=== PATIENT | female | born 1955 | race Caucasian/White ===

== ENCOUNTER → 2016-10-19 | Outpatient (REF) ==
[~2016-10-19] MED LIST: AC500T PO; ALBU8.5H6; ALBU8.5H6 IH; AMOX1TAB12 PO; AMOX500C5 PO; ASPI-345 PO; ASPI-479; AZIT250T PO; AZIT500T PO; BUDE10.2 IH; BUPR100T15 PO; BUPR100T8 PO; BUSP15TA75 PO; CALC-140 PO; CEFD300C9 PO; CHOL4PAC2 PO; CLON0.5T PO; CLON0.5T3 PO; CLON1TAB3 PO; CLOP75TA3 PO; CLOZ100T7 PO; DLT120CCR PO; DONE10TA5 PO; DUONEB 0.5 MG-33 ML IH; FLUO40CA12 PO; FRS325T PO; FURO-124 PO; FURO80TA3 PO; Furosemide PO; GFN600TCR PO; IPR14IN INH; IPRA12.92 IH; KCL20TCR PO; LEVO500T16 PO; LOPE2CAP29 PO; LORA10TA7 PO; LOSA25TA2 PO; LVF500T PO; MAGN800O PO; MTP25TSR PO; MULT-954 PO; MULT1TAB69 PO; NAPR500T3 PO; OMEG-7 PO; OMEG1CAP PO; OMEP20CA12 PO; OXYGEN; PALI9TAB3 PO; POTA20PA3 PO; TIOT18CA IH; TRM50T PO
[2016-10-19 10:21] LABS: BASOPHILS % (AUTO) 0 % (0-2); EOSINOPHILS % (AUTO) 0 % (0-4); MEAN CORPUSCULAR HEMOGLOBIN 28.6 PG (26.0-34.0); MEAN CORPUSCULAR HGB CONC 32.6 g/dL (31.0-37.0); MEAN CORPUSCULAR VOLUME 88 FL (80-100); MEAN PLATELET VOLUME 9.7 FL (6.0-9.5); MONOCYTES # (AUTO) 0.9 X10^3; MONOCYTES % (AUTO) 7 % (3-11); NEUTROPHILS # (AUTO) 6.8 X10^3; NEUTROPHILS % (AUTO) 58 % (51-67); PLATELET COUNT 254 10^3uL (150-450); WHITE BLOOD COUNT 11.71 10^3uL (4.0-11.0)
== END ==
LOC: LAB 10:00
PROVIDERS: ATTEND Family Medicine
DX: Z51.81 Encounter for therapeutic drug level monitoring (principal)
CPT/HCPCS: 85025

== ENCOUNTER → 2016-11-16 | Outpatient (REF) ==
[2016-11-16 14:49] LABS: BASOPHILS % (AUTO) 0 % (0-2); EOSINOPHILS % (AUTO) 0 % (0-4); LYMPHOCYTES # (AUTO) 4.2 X10^3; MEAN CORPUSCULAR HEMOGLOBIN 28.6 PG (26.0-34.0); MEAN CORPUSCULAR HGB CONC 33.2 g/dL (31.0-37.0); MEAN CORPUSCULAR VOLUME 86 FL (80-100); MEAN PLATELET VOLUME 10.3 FL (6.0-9.5); MONOCYTES # (AUTO) 1.1 X10^3; MONOCYTES % (AUTO) 8 % (3-11); NEUTROPHILS # (AUTO) 8.7 X10^3; NEUTROPHILS % (AUTO) 61 % (51-67); PLATELET COUNT 256 10^3uL (150-450); WHITE BLOOD COUNT 14.22 10^3uL (4.0-11.0)
== END ==
LOC: CLAB.BLUES 14:13
PROVIDERS: ATTEND Family Medicine
DX: Z51.81 Encounter for therapeutic drug level monitoring (principal)
CPT/HCPCS: 85025

== ENCOUNTER → 2016-11-26 | Outpatient (REF) | LOC: RAD 13:59 | PROVIDERS: ATTEND Family Medicine | DX: J20.9 Acute bronchitis, unspecified (principal) | CPT/HCPCS: 71020 ==

== ENCOUNTER → 2016-12-13 | Outpatient (REF) ==
[2016-12-13 14:49] LABS: BASOPHILS % (AUTO) 0 % (0-2); EOSINOPHILS # (AUTO) 0.1 10^3uL; EOSINOPHILS % (AUTO) 0 % (0-4); LYMPHOCYTES # (AUTO) 3.5 X10^3; MEAN CORPUSCULAR HEMOGLOBIN 28.2 PG (26.0-34.0); MEAN CORPUSCULAR HGB CONC 32.9 g/dL (31.0-37.0); MEAN CORPUSCULAR VOLUME 86 FL (80-100); MONOCYTES # (AUTO) 1.4 X10^3; MONOCYTES % (AUTO) 9 % (3-11); NEUTROPHILS # (AUTO) 10.1 X10^3; NEUTROPHILS % (AUTO) 67 % (51-67); PLATELET COUNT 259 10^3uL (150-450); WHITE BLOOD COUNT 15.13 10^3uL (4.0-11.0)
[2016-12-13 15:40] LABS: ALBUMIN 4.2 g/dL (3.4-5.0); ANION GAP 16.3 MEQ/L (3-15); CALCULATED IONIZED CALCIUM 4.4 mg/dL (3.8-4.6); TOTAL PROTEIN 6.7 g/dL (6.4-8.5)
== END ==
LOC: CLAB.BLUES 11:34
PROVIDERS: ATTEND Family Medicine
DX: F20.0 Paranoid schizophrenia (principal)
CPT/HCPCS: 80053; 80061; 82043; 83036; 85025

== ENCOUNTER → 2016-12-23 | Outpatient (CLI) | payer OTHER | LOC: RAD 11:12 | PROVIDERS: ATTEND Family Medicine | DX: J44.9 Chronic obstructive pulmonary disease, unspecified (principal); J98.11 Atelectasis | CPT/HCPCS: 71020 ==

== ENCOUNTER → 2017-01-11 | Outpatient (REF) ==
[2017-01-11 13:53] LABS: BASOPHILS % (AUTO) 0 % (0-2); EOSINOPHILS # (AUTO) 0.1 10^3uL; EOSINOPHILS % (AUTO) 0 % (0-4); LYMPHOCYTES # (AUTO) 3.8 X10^3; MEAN CORPUSCULAR HEMOGLOBIN 28.4 PG (26.0-34.0); MEAN CORPUSCULAR HGB CONC 32.3 g/dL (31.0-37.0); MEAN CORPUSCULAR VOLUME 88 FL (80-100); MONOCYTES % (AUTO) 8 % (3-11); NEUTROPHILS # (AUTO) 7.4 X10^3; NEUTROPHILS % (AUTO) 60 % (51-67); PLATELET COUNT 264 10^3uL (150-450); WHITE BLOOD COUNT 12.36 10^3uL (4.0-11.0)
== END ==
LOC: LAB 13:35
PROVIDERS: ATTEND Family Medicine
DX: F20.0 Paranoid schizophrenia (principal)
CPT/HCPCS: 85025

== ENCOUNTER → 2017-01-11 | Outpatient (CLI) | payer OTHER ==
--- NOTE | 2017-01-11 17:20 | Diagnostic Imaging Report ---
EXAMINATION: CHEST (PA AND LATERAL) CLINICAL INDICATION: A 61-year-old female, atelectasis. COMPARISON: December 23, 2016. FINDINGS: There are median sternotomy wires. There is a left-sided cardiac assist device with right atrial and right ventricular leads. The leads appear intact. Stable overall appearance of the cardiomediastinal silhouette. There is no identified pneumothorax. There is no identified pleural effusion. There is no identified focal airspace consolidation. IMPRESSION: No identified acute cardiopulmonary abnormality. Dictated by: Dictated on workstation # [id number]
== END ==
LOC: RAD 13:38
PROVIDERS: ATTEND Family Medicine
DX: J98.11 Atelectasis (principal)
CPT/HCPCS: 71020

== ENCOUNTER → 2017-02-07 | Outpatient (CLI) | payer OTHER | LOC: RT 12:50 | PROVIDERS: ATTEND Family Medicine | DX: R55 Syncope and collapse (principal) | CPT/HCPCS: 93226 ==

== ENCOUNTER → 2017-02-11 | Outpatient (REF) ==
[2017-02-11 14:58] LABS: MEAN CORPUSCULAR HEMOGLOBIN 28.1 PG (26.0-34.0); MEAN CORPUSCULAR HGB CONC 32.3 g/dL (31.0-37.0); MEAN CORPUSCULAR VOLUME 87 FL (80-100); MEAN PLATELET VOLUME 10.6 FL (6.0-9.5); PLATELET COUNT 246 10^3uL (150-450); WHITE BLOOD COUNT 13.45 10^3uL (4.0-11.0)
[2017-02-11 15:06] LABS: ALBUMIN 4.6 g/dL (3.4-5.0); ANION GAP 19.6 MEQ/L (3-15); CALCULATED IONIZED CALCIUM 4.4 mg/dL (3.8-4.6)
[2017-02-11 15:14] LABS: BAND NEUTROPHILS % 1 % (0-6); EOSINOPHILS % 0 % (0-4); LYMPHOCYTES # 4.7 #; MONOCYTES # 0.5 #; MONOCYTES % 4 % (3-11); SEGMENTED NEUTROPHILS % 60 % (51-67); TOTAL CELLS COUNTED 100
[2017-02-11 15:15] LABS: RBC MORPH NORMAL (NORMAL)
== END ==
LOC: CLAB.BLUES 14:50
PROVIDERS: ATTEND Family Medicine
DX: R55 Syncope and collapse (principal)
CPT/HCPCS: 80053; 84443; 85007; 85027